=== PATIENT | female | born 1980 | race Caucasian/White ===

== ENCOUNTER 2020-10-23 20:32 | Emergency (ER) | payer MEDICARE, SELFPAY ==
[2020-10-23 20:38] VITALS: BP 142/87; PULSE 68; RESP 16; TEMP 36.6; O2SAT 94; BMI 36.8
--- NOTE | 2020-10-23 21:03 | ED_ITS ---
HPI - Abdominal Pain General: Chief Complaint: Abdominal Pain Stated Complaint: SEVERE ABD PAIN AND NAUTEATED Time Seen by Provider: 10/23/20 20:36 History of Present Illness: HPI narrative: Patient is a 40-year-old female comes to the ED with abdominal pain nausea. Past surgical history of an appendectomy and hysterectomy. Patient says her abdominal pain started yesterday and is located in the right upper quadrant. She rates the abdominal pain a 10 out of 10. She says the pain got worse after she ate a pizza. She says she started feeling nauseous today and has vomited once. Denies any fever,, bladder or bowel symptoms. Associated Symptoms: Reports nausea and vomiting; Denies chills, constipation, diarrhea, dysuria, fever(s), hematochezia and hematuria Review of Systems Const: Denies: fever(s), chills or fatigue Eyes: Denies: change in vision or eye discomfort ENMT: Denies: throat pain, odynophagia, nasal discharge or nasal congestion Card: Denies: chest pain, palpitations, edema, swelling of feet/ankles, dyspnea on exertion or orthopnea Resp: Denies: dyspnea, productive cough or non-productive cough GI: Reports: abdominal pain, nausea and vomiting; Denies: diarrhea, constipation or hematochezia : Denies: flank pain, dysuria or hematuria Musc: Denies: neck pain, back pain or extremity swelling Skin/Breast: Denies: rash or new lesions Neuro: Denies: headache(s), numbness in extremities or weakness in extremities Physical Exam Const: COMMON NORMALS: patient oriented x3 and alert GENERAL APPEARANCE: cooperative; not comfortable (Patient appears uncomfortable due to pain.) NUTRITIONAL APPEARANCE: overweight HENMT: COMMON NORMALS: normocephalic HEAD & SCALP: normocephalic MOUTH: Normal oral and palatal mucosa present THROAT: posterior oropharynx normal and uvula midline Eye: COMMON NORMALS: Equal, round and reactive pupils present PUPIL: Yes Equal, round and reactive pupils present Neck/C-Spine: COMMON NORMALS: supple GENERAL: Yes normal visual inspection Resp: COMMON NORMALS: normal respiratory effort, No retractions, No use of accessory muscles and clear to auscultation bilaterally AUSCULTATION: clear to auscultation bilaterally Cardio: COMMON NORMALS: regular rate, regular rhythm, S1 normal heart sound present, S2 normal heart sound present, No gallops present (Cardio), No clicks present (Cardio), No murmurs present (Cardio) and Peripheral pulses 2+ throughout RATE: regular rate RHYTHM: regular rhythm HEART SOUNDS: S1 normal heart sound present and S2 normal heart sound present PERIPHERAL PULSES: Peripheral pulses 2+ throughout GI: COMMON NORMALS: Normal to inspection, nondistended, normoactive bowel sounds present, Soft to palpation and no masses PALPATION: Yes Soft to palpation and Yes Tenderness to palpation present (GI) Details: RUQ (Positive Maciel sign.) : COMMON NORMALS: Yes no CVA tenderness BLADDER/KIDNEY EXAM: Yes no CVA tenderness Back/Pelvis: COMMON NORMALS: no CVA tenderness Extremity: COMMON NORMALS: normal to inspection Neuro: COMMON NORMALS: patient oriented x3 SENSORIUM/ORIENTATION: Yes alert GAIT: Yes Normal gait present Skin: GENERAL SKIN EXAM: dry skin Course Reevaluation(s): Reevaluation #1: Patient was given IV morphine and Zofran and her symptoms greatly improved. Patient says if she discharges home she has some pain meds at home to use, but would like a prescription for antinausea meds. Vital Signs: Vital signs: Vital Signs Temperature 97.9 F 10/23/20 20:38 Pulse Rate 67 10/23/20 21:22 Respiratory Rate 18 10/23/20 21:48 Blood Pressure 128/80 10/23/20 21:22 Pulse Oximetry 95 10/23/20 21:22 MDM - Abdominal Pain MDM Narrative: Medical decision making narrative: Patient is a 40-year-old female comes the ED with abdominal pain, nausea and vomiting. Symptoms started after she ate pizza. Vitals are stable. Patient is nontoxic-appearing 40-year-old female that has some right upper quadrant abdominal tenderness with positive Maciel sign. White blood cell count 13.4 but the rest of CBC CMP, lipase and liver function labs are unremarkable. Ultrasound of gallbladder showed no acute findings. Patient was given IV morphine and Zofran and her symptoms greatly improved. Patient was diagnosed with biliary colic and I placed an order with case management for patient to be referred to general surgery for further evaluation. Return to ED precautions given. Patient was discharged with a prescription for Zofran and she said she already has some pain meds at home but she can use for any pain. I told patient to slowly advance diet and to watch what she eats and to avoid certain foods that cause worsening symptoms such as fatty or greasy foods. I told patient major case detective will contact her in the next several days to set up an appointment with general surgery. Patient understood agree with plan. Lab Data: Attestation: I reviewed the patient's lab results. Labs: Lab Results 10/23/20 10/23/20 10/23/20 Range/Units 20:52 21:20 21:20 WBC 13.4 H (4.0-10.0) 10^3/ uL RBC 4.45 (4.1-5.3) 10^6/u L Hgb 13.6 (11.5-15.3) g/dL Hct 41.2 (37.0-47.0) % MCV 92.6 (81-99) fL MCH 30.6 (28.0-34.0) pg MCHC 33.0 (30.0-36.0) g/dL RDW 14.7 (12.1-15.1) % Plt Count 251 (130-400) 10^3/c mm MPV 10.5 H (7.4-10.4) fL Neut % (Auto) 47.4 % Lymph % (Auto) 42.2 % [place] % (Auto) 6.7 % Eos % (Auto) 2.8 % Baso % (Auto) 0.7 % Neut # (Auto) 6.31 (1.8-7.7) 10^3/u L Lymph # (Auto) 5.6 H (0.8-4.8) 10^3/u L [place] # (Auto) 0.9 (0.2-0.9) 10^3/u L Eos # (Auto) 0.4 (0.0-0.8) 10^3/u L Baso # (Auto) 0.1 (0.0-0.1) 10^3/u L Nucleated RBC % (a uto) 0 % Nucleated RBCs # 0.0 /100WBC Sodium Cancelled Potassium Cancelled Chloride Cancelled Carbon Dioxide Cancelled Anion Gap Cancelled BUN Cancelled Creatinine Cancelled GFR Calculation Cancelled Glucose Cancelled Calculated Osmolal ity Cancelled Calcium Cancelled Total Bilirubin Cancelled AST Cancelled ALT Cancelled Alkaline Phosphata se Cancelled Total Protein Cancelled Albumin Cancelled Globulin Cancelled Lipase Cancelled HCG, Qual Urine Color Yellow (Yellow) Urine Appearance Clear (CLEAR) Urine pH 7 (5-7) Ur Specific Gravit y 1.010 (1.005-1.030) Urine Protein Neg (Negative) Urine Glucose (UA) Norm (Normal) Urine Ketones Negative (Negative) Urine Blood Neg (Negative) Urine Nitrate Negative (Negative) Urine Bilirubin Neg (Negative) Urine Urobilinogen Norm (Negative) mg/dL Ur Leukocyte May ase Negative (Negative) Urine RBC None (0-2) /hpf Urine WBC None (0-5) /hpf Ur Squamous Epith Cells 0-4 H (0-5) /hpf Ur Transition Epit h Cell None /hpf Ur Renal Epithelia l Cell N /hpf Amorphous Sediment Not Reportable Urine Bacteria Trace (NONE) /hpf 10/23/20 10/23/20 10/23/20 Range/Units 21:20 21:35 21:35 WBC (4.0-10.0) 10^3/ uL RBC (4.1-5.3) 10^6/u L Hgb (11.5-15.3) g/dL Hct (37.0-47.0) % MCV (81-99) fL MCH (28.0-34.0) pg MCHC (30.0-36.0) g/dL RDW (12.1-15.1) % Plt Count (130-400) 10^3/c mm MPV (7.4-10.4) fL Neut % (Auto) % Lymph % (Auto) % [place] % (Auto) % Eos % (Auto) % Baso % (Auto) % Neut # (Auto) (1.8-7.7) 10^3/u L Lymph # (Auto) (0.8-4.8) 10^3/u L [place] # (Auto) (0.2-0.9) 10^3/u L Eos # (Auto) (0.0-0.8) 10^3/u L Baso # (Auto) (0.0-0.1) 10^3/u L Nucleated RBC % (a uto) % Nucleated RBCs # /100WBC Sodium 141 Potassium 3.9 Chloride 105 Carbon Dioxide 27 Anion Gap 12.9 BUN 10 Creatinine 0.9 GFR Calculation 69.3 L Glucose 84 Calculated Osmolal ity 290 Calcium 8.4 L Total Bilirubin 0.2 AST 17 ALT 10 Alkaline Phosphata se 68 Total Protein 7.1 Albumin 4.3 Globulin 2.8 Lipase 29 HCG, Qual Cancelled Negative Urine Color (Yellow) Urine Appearance (CLEAR) Urine pH (5-7) Ur Specific Gravit y (1.005-1.030) Urine Protein (Negative) Urine Glucose (UA) (Normal) Urine Ketones (Negative) Urine Blood (Negative) Urine Nitrate (Negative) Urine Bilirubin (Negative) Urine Urobilinogen (Negative) mg/dL Ur Leukocyte May ase (Negative) Urine RBC (0-2) /hpf Urine WBC (0-5) /hpf Ur Squamous Epith Cells (0-5) /hpf Ur Transition Epit h Cell /hpf Ur Renal Epithelia l Cell /hpf Amorphous Sediment Urine Bacteria (NONE) /hpf Imaging Data ^: US: Attestation: I personally reviewed and interpreted this imaging study as follows: Radiologist's impression: [place] [address] Ultrasound Report Signed Patient: Lynn Galloway Unit #: [id number] : 1980 Age/Sex: 40 / F ADM Date: 10/23/20 Loc: ER Room/Bed: Attending Dr: Ordering Provider/Ordering MD: Tim Bernard Date of Service: 10/23/20 Procedure(s): US gall bladder 54002 Accession Number(s): [id number] Report Number: [id number] PROCEDURE INFORMATION: Exam: US Abdomen, Limited; Right Upper Quadrant Exam date and time: 10/23/2020 9:46 PM Age: 40 years old Clinical indication: Abdominal pain; Additional info: Ruq tenderness, n/v TECHNIQUE: Imaging protocol: US abdomen. Real time ultrasound with image documentation. Limited exam focused on the right upper quadrant. COMPARISON: No relevant prior studies available. FINDINGS: Liver: Normal. No masses. Gallbladder: Normal. No gallstones. There is no gallbladder wall thickening. Common bile duct: Normal. No stones. No dilation. Pancreas: Visualized pancreas is unremarkable. Right kidney: Normal. No mass. No hydronephrosis. US/US gall bladder [id number] IMPRESSION: No acute findings. Dictated By: Vargas Khoury Signed By: Vargas Khoury Signed Date/Time: 10/23/202230 DD/ 28 Discharge Plan Discharge Patient Disposition: Home Clinical Impression: Biliary colic Condition: Stable Prescriptions: New ondansetron 4 mg tablet,disintegrating 4 mg PO Q8H Qty: 15 RF: 0 Discharge Orders: Discharge ED (Routine); Ordered 10/23/20 Ordered By: Tim Bernard Discharge Diet: Advance as tolerated and Clear Liquid Discharge Activity: Increase activity as tolerated Patient Instructions: Biliary Colic (ED) Activity Restrictions/Additional Instructions: Follow-up with medical provider as directed. Case management will be contacting you in the next several days to set up an appointment with general surgery. Take medications as prescribed. Take your previously prescribed pain medications to help with any acute pain. Return to the ER or your medical provider if condition worsens. Please read and understand discharge instructions. Thank you for choosing [facility] for your healthcare needs today. Please realize this is an emergency room and that we are providing you with a medical screening exam and this may not be complete and all inclusive of all the testing and or work up that you may need to determine your ailment or severity of your illness. It is very important that you follow up as instructed or that you return to the Emergency Department should you have concerns or if your condition changes or worsens in any way. Coding Level of Care Code ED Truck Driver for David Alonso Exam Comprehensive
[2020-10-23 21:07] LABS: Bilirubin Urine Neg (Negative); Blood Urine Neg (Negative); Glucose Urine UA Norm (Normal); Ketones Urine Negative (Negative); Leukocyte Esterase Urine Negative (Negative); Nitrate Urine Negative (Negative); Protein Urine Neg (Negative); Urine Appearance Clear (CLEAR); Urine Color Yellow (Yellow); Urobilinogen Urine Norm (Negative); pH Urine 7 (5-7)
[2020-10-23 21:08] LABS: Add Urine Culture? No; Bacteria Urine TRACE /hpf; Renal Epithelial Cells Urine N /hpf; Squamous Epithelial Cell Urine 0-4 /hpf (0-5)
[2020-10-23 21:22] VITALS: BP 128/80; PULSE 67; RESP 16; O2SAT 95
[2020-10-23 21:23] LABS: Basophils # 0.1 10^3/uL (0.0-0.1); Basophils % 0.7 %; Eosinophils # 0.4 10^3/uL (0.0-0.8); Eosinophils % 2.8 %; Hematocrit 41.2 % (37.0-47.0); Hemoglobin 13.6 g/dL (11.5-15.3); Lymphocytes # 5.6 10^3/uL (0.8-4.8); Lymphocytes % 42.2 %; Mean Corpuscular Hemoglobin 30.6 pg (28.0-34.0); Mean Corpuscular Volume 92.6 fL (81-99); Mean Platelet Volume 10.5 fL (7.4-10.4); Monocytes # 0.9 10^3/uL (0.2-0.9); Monocytes % 6.7 %; Neutrophils # 6.31 10^3/uL (1.8-7.7); Neutrophils % 47.4 %; Nucleated Red Blood Cells % 0 %; Platelet Count 251 10^3/cmm (130-400); Red Blood Count 4.45 10^6/uL (4.1-5.3); Red Cell Distribution Width 14.7 % (12.1-15.1); White Blood Count 13.4 10^3/uL (4.0-10.0)
--- NOTE | 2020-10-23 21:27 | USR_ITS ---
PROCEDURE INFORMATION: Exam: US Abdomen, Limited; Right Upper Quadrant Exam date and time: 10/23/2020 9:46 PM Age: 40 years old Clinical indication: Abdominal pain; Additional info: Ruq tenderness, n/v TECHNIQUE: Imaging protocol: US abdomen. Real time ultrasound with image documentation. Limited exam focused on the right upper quadrant. COMPARISON: No relevant prior studies available. FINDINGS: Liver: Normal. No masses. Gallbladder: Normal. No gallstones. There is no gallbladder wall thickening. Common bile duct: Normal. No stones. No dilation. Pancreas: Visualized pancreas is unremarkable. Right kidney: Normal. No mass. No hydronephrosis. US/US gall bladder [id number] IMPRESSION: No acute findings.
[2020-10-23] MEDS: sodium chloride 0.9% 1,000 ML 999 ML IV (21:44)
[2020-10-23 21:48] VITALS: RESP 18
[2020-10-23] MEDS: morphine 4 mg/mL SDV 1 mL IVP (21:48)
[2020-10-23] MEDS: ondansetron 2 mg/ML SDV 2 mL 4 MG IVP (21:49)
[2020-10-23 21:58] LABS: HCG, Serum Qual Negative (Negative)
[2020-10-23 22:00] LABS: Alanine Aminotransferase 10 U/L (0-33); Albumin Level 4.3 g/dL (3.5-5.2); Alkaline Phosphatase 68 IU/L (35-105); Anion Gap 12.9 (5-19); Aspartate Amino Transferase 17 U/L (0-32); Blood Urea Nitrogen 10 mg/dL (6-20); Calcium 8.4 mg/dL (8.5-10.5); Carbon Dioxide 27 mmol/L (22-29); Chloride 105 mmol/L (98-107); Globulin 2.8 g/dL (1.3-4.6); Glomerular Filtration Rate 69.3 mL/min (90-130); Glucose 84 mg/dL (65-115); Lipase 29 U/L (13-60); Osmolality Calculated 290 mOsm/kg (285-295); Potassium 3.9 mmol/L (3.5-5.1); Sodium 141 mmol/L (136-145); Total Bilirubin 0.2 mg/dL (0.15-1.2); Total Protein 7.1 g/dL (6.6-8.7)
--- NOTE | 2020-10-24 11:03 | DCPLANNER ---
sugar cane farm manager had message to schedule a follow up appointment for patient with general surgery. sugar cane farm manager emailed patients information to both Jane and Mena at [facility] General Surgery. Patients information will be printed and reviewed. Clinic will call patient with appointment information.
--- NOTE | 2020-10-30 10:05 | DCPLANNER ---
[facility] General Surgery contacted case making machine operator stating that the clinic was unable to reach patient to schedule an appointment. Clinic mailed patient a letter asking them to contact the clinic to schedule a follow up with clinic. manager learning called phone number , unable to speak with patient or leave a voicemail for patient at this time.
== END 2020-10-23 22:57 | disposition home or self-care (01) ==
PROVIDERS: Emergency Provider Physician Assistant
DX: K80.50 Calculus of bile duct without cholangitis or cholecystitis without obstruction (principal)
CPT/HCPCS: 76705; 80053; 81001; 83690; 84703; 85025; 96361; 96374; 96375; 99284; J2270; J2405; J7030